=== PATIENT | female | born 1955 | race Caucasian/White ===

== ENCOUNTER → 2017-02-19 | Outpatient (CLI) | payer BC ==
[~2017-02-19] MED LIST: LISINOPRIL/HCTZ1 TA1 PO
== END ==
LOC: MC.RAD 14:00
DX: Z12.31 Encounter for screening mammogram for malignant neoplasm of breast (principal)

== ENCOUNTER → 2017-05-02 | Outpatient (CLI) | payer BC | LOC: COL.VAS 08:58 | DX: I08.1 Rheumatic disorders of both mitral and tricuspid valves (principal); I10 Essential (primary) hypertension ==

== ENCOUNTER → 2017-09-19 | Outpatient (CLI) | payer BC | LOC: COL.RAD 08:20 | DX: M19.072 Primary osteoarthritis, left ankle and foot (principal) | CPT/HCPCS: J3301; Q9967 ==

== ENCOUNTER 2018-01-02 12:55 | Day surgery (SDC) | payer BC ==
[~2018-01-02] VITALS: Ht 175.3 cm; Wt 116.3 kg
[2018-01-02 13:48] VITALS: BP 140/79; PULSE 80; TEMP 98.8
[2018-01-02] MEDS ORDERED: HYZAAR 12.5 MG-1 TAB PO (13:52)
[2018-01-02] MEDS ORDERED: ESTRACE0.5 MG PO (13:52)
[2018-01-02] MEDS ORDERED: VOLTAREN 75 DR75 MG PO (13:53)
[2018-01-02] MEDS ORDERED: ADVIL200 MG PO (13:54)
[2018-01-02 14:34] VITALS: BP 126/73; PULSE 76; TEMP 97.7
[2018-01-02 14:49] VITALS: BP 120/75; PULSE 67
[2018-01-02 15:04] VITALS: BP 114/67; PULSE 69
[2018-01-02 18:20] VITALS: BP 120/70; PULSE 70
== END 2018-01-02 15:40 | disposition home or self-care (01) ==
LOC: SDCO 12:55
DX: Z12.11 Encounter for screening for malignant neoplasm of colon (principal); Z80.0 Family history of malignant neoplasm of digestive organs; R19.7 Diarrhea, unspecified; K57.30 Diverticulosis of large intestine without perforation or abscess without bleeding
CPT/HCPCS: J2250; J3010; J7030

== ENCOUNTER → 2018-02-05 | Outpatient (CLI) | payer BC ==
[~2018-02-05] MED LIST changes: +ADVIL200 MG PO; +ESTRACE0.5 MG PO; +HYZAAR 12.5 MG-1 TAB PO; +VOLTAREN 75 DR75 MG PO
== END ==
LOC: COL.RAD 08:22
DX: M25.551 Pain in right hip (principal)
CPT/HCPCS: J3301; Q9967

== ENCOUNTER → 2018-03-20 | Outpatient (CLI) | payer BC | LOC: COL.RAD 08:55 | DX: M25.551 Pain in right hip (principal) | CPT/HCPCS: J3301 ==

== ENCOUNTER → 2018-08-27 | Outpatient (CLI) | payer BC | LOC: MC.RAD 15:20 | DX: Z12.31 Encounter for screening mammogram for malignant neoplasm of breast (principal) ==

== ENCOUNTER 2019-02-07 22:34 | Emergency (ER) | payer BC ==
[~2019-02-07] VITALS: Ht 175.3 cm; Wt 113.6 kg
[2019-02-07 22:51] VITALS: BP 163/79; PULSE 95; TEMP 98.9
== END 2019-02-07 23:40 | disposition left against medical advice (07) ==
LOC: COL.ER 22:34
DX: M54.2 Cervicalgia (principal); M54.5 Low back pain; M25.519 Pain in unspecified shoulder; V89.2XXA Person injured in unspecified motor-vehicle accident, traffic, initial encounter; W22.10XA Striking against or struck by unspecified automobile airbag, initial encounter; Y92.411 Interstate highway as the place of occurrence of the external cause

== ENCOUNTER → 2019-10-06 | Outpatient (CLI) | payer BC | LOC: MC.RAD 13:09 | DX: Z12.31 Encounter for screening mammogram for malignant neoplasm of breast (principal) ==

== ENCOUNTER → 2020-03-24 | Outpatient (CLI) | payer BC | LOC: COL.RAD 07:45 | DX: M25.552 Pain in left hip (principal); M54.5 Low back pain | CPT/HCPCS: J3301 ==

== ENCOUNTER → 2021-02-23 | Outpatient (CLI) | payer OTHER | LOC: MC.RAD 13:09 | DX: Z12.31 Encounter for screening mammogram for malignant neoplasm of breast (principal) ==

== ENCOUNTER → 2021-08-03 | Outpatient (CLI) | payer OTHER ==
[~2021-08-03] VITALS: Ht 172.7 cm; Wt 119.3 kg
== END ==
LOC: DIET.TELE 08:38 → COL.CLI 10:24
DX: E78.5 Hyperlipidemia, unspecified (principal)

== ENCOUNTER → 2021-08-19 | Outpatient (CLI) | payer OTHER | LOC: COL.RAD 09:44 | DX: M47.816 Spondylosis without myelopathy or radiculopathy, lumbar region (principal); M71.38 Other bursal cyst, other site; Z98.890 Other specified postprocedural states ==

== ENCOUNTER → 2022-06-22 | Day surgery (SDC) | payer OTHER ==
[~2022-06-22] VITALS: Ht 172.7 cm; Wt 117.5 kg
[2022-06-22] VITALS (14 sets, daily range): BP systolic 114–161; BP diastolic 58–86; PULSE 66–88; TEMP 98.1
[~2022-06-22] MED LIST changes: +ASPIRIN 81M81 MG/TA2 PO; +CALCIUM 600MG+D1 TAB PO; +CENTRUM SILVER1 CTB PO; +COZAAR100 MG PO; +CRESTOR20 MG PO; +RELIEF FACTOR PO; +TYLENOL 8 HR PO; +VITAMINC1000TA PO; +VOLTAREN GEL 1%1 TU TP
[2022-06-22 09:38] LABS: HEMOGLOBIN 13.6 g/dl (12.5-16.0); MEAN CELL VOLUME 91 fl (80.0-100.0); MEAN CORPUSCULAR HEMOGLOBIN 31 pg (27-31); MEAN CORPUSCULAR HGB CONC 34 g/dl (33.0-37.0); MEAN PLATELET VOLUME 10.7 fl (7.4-10.4); PLATELET COUNT 221 K/mm3 (130-400); RED BLOOD COUNT 4.41 M/mm3 (4.10-5.30); REDCELL DISTRIBUTION WIDTH-CV 11.9 % (11.5-14.5)
[2022-06-22 09:46] LABS: PROTHROMBIN TIME 10.9 SECONDS (9.7-12.8)
[2022-06-22 09:48] LABS: PARTIAL THROMBOPLASTIN TIME 31.1 SECONDS (26.0-37.0)
[2022-06-22 09:51] LABS: CALCIUM 9.5 mg/dL (8.4-10.2); CREATININE, serum 0.82 mg/dL (0.57-1.11); POTASSIUM 3.9 mmol/L (3.5-4.5)
--- NOTE | 2022-06-22 10:25 | NUR ---
SEE MERGE FOR ALL MEDICATIONS, INTERVENTIONS AND VITALS
== END ==
LOC: COL.CAR 08:30
PROVIDERS: Internal Medicine Cardiovascular Disease
DX: I25.10 Atherosclerotic heart disease of native coronary artery without angina pectoris (principal); R94.39 Abnormal result of other cardiovascular function study; I49.3 Ventricular premature depolarization; I49.1 Atrial premature depolarization; I10 Essential (primary) hypertension; R42 Dizziness and giddiness; Z79.899 Other long term (current) drug therapy; Z95.818 Presence of other cardiac implants and grafts; Z79.82 Long term (current) use of aspirin
CPT/HCPCS: J1644; J2250; J3010; Q9967

== ENCOUNTER → 2023-04-09 | Outpatient (CLI) | payer OTHER ==
[2006-03-09 09:15] VITALS: BP 121/69; PULSE 58; TEMP 98
== END ==
LOC: MC.RAD 10:36
DX: Z12.31 Encounter for screening mammogram for malignant neoplasm of breast (principal)